=== PATIENT | male | born 1955 | race Caucasian/White ===

== ENCOUNTER 2018-08-15 20:05 | Observation (INO) | payer OTHER ==
[2018-08-15 21:12] LABS: BASO # 0.1 K/uL (0.0-0.2); BASO % 0.7 % (0.0-2.0); EOS # 0.2 K/uL (0.0-0.7); EOS % 1.8 % (0.0-4.0); HEMOGLOBIN 15.6 g/dL (12.0-18.0); LYMPH # 3.4 K/uL (1.0-4.3); LYMPH % 27.7 % (20.0-40.0); MEAN CELL VOLUME 85.2 fL (80.0-94.0); MEAN CORPUSCULAR HEMOGLOBIN 29.8 pg (27.0-31.0); MEAN CORPUSCULAR HGB CONC 34.9 g/dL (33.0-37.0); MEAN PLATELET VOLUME 7.7 fL (7.2-11.7); MONO # 1.1 K/uL (0.0-0.8); MONO % 8.6 % (0.0-10.0); NEUT # 7.6 K/uL (1.8-7.0); NEUT % 61.2 % (50.0-75.0); NRBC % 0.1 % (0.0-2.0); RBC 5.25 Mil/uL (4.40-5.90); RED CELL DISTRIBUTION WIDTH 13.8 % (11.5-14.5); WHITE BLOOD COUNT 12.4 K/uL (4.8-10.8)
[2018-08-15 21:19] LABS: INR 1.1; PARTIAL THROMBOPLASTIN TIME 31.3 SECONDS (21-34); PROTHROMBIN TIME 11.5 SECONDS (9.7-12.2)
[2018-08-15 21:24] LABS: ALB/GLOB RATIO 1.3 (1.0-2.1); ALBUMIN 4.1 g/dL (3.5-5.0); ALT/SGPT 26 U/L (21-72); AST/SGOT 25 U/L (17-59); BLOOD UREA NITROGEN 13 mg/dL (9-20); CALCIUM 9.3 mg/dl (8.6-10.4); GFR NON-AFRICAN AMERICAN > 60
[2018-08-15 21:35] LABS: B-TYPE NATRIURETIC PEPTIDE 87.3 pg/mL (0-900)
--- NOTE | 2018-08-15 22:00 | C.PDOC ---
History Of Present Illness 63 year old male with PMHx of HTN presents to the ED c/o intermittent mid sternal chest pain and non radiating epigastric abdominal pain for the past few days. Patient reports he is complaint with his HTN medication, took it today. P atient denies sob, cough, fever, chills, nausea, vomit, diarrhea, headache, dizziness, rash, weakness, numbness, recent travel, change in bowel movements, back pain, syncope, previous episodes. Time Seen by Provider: 08/15/18 20:25 Chief Complaint (Nursing): Chest Pain History Per: Patient History/Exam Limitations: no limitations Onset/Duration Of Symptoms: Days Current Symptoms Are (Timing): Still Present Quality: "Pain" Recent travel outside of the [place]: No Additional History Per: Patient Past Medical History Reviewed: Historical Data, Nursing Documentation, Vital Signs Vital Signs: Last Vital Signs Temp 98.1 F 08/15/18 20:10 Pulse 81 08/15/18 20:10 Resp 18 08/15/18 20:10 BP 207/111 H 08/15/18 20:10 Pulse Ox 98 08/15/18 20:10 Primary Care Provider: Shiraz Mendez - Medical History PMH: HTN Denies: Chronic Kidney Disease Surgical History: No Surg Hx Family History: States: Unknown Family Hx - Social History Hx Alcohol Use: No Hx Substance Use: No - Immunization History Hx Influenza Vaccination: No Hx Pneumococcal Vaccination: No Review Of Systems Constitutional: Negative for: Fever, Chills Cardiovascular: Negative for: Chest Pain, Palpitations Respiratory: Negative for: Shortness of Breath Gastrointestinal: Positive for: Abdominal Pain. Negative for: Nausea, Vomiting, Diarrhea Musculoskeletal: Negative for: Back Pain Skin: Negative for: Rash Neurological: Negative for: Weakness, Numbness, Headache, Dizziness Physical Exam - Physical Exam Appears: Non-toxic, No Acute Distress Skin: Normal Color, Warm, Dry, No Rash Head: Atraumatic, Normacephalic Eye(s): bilateral: Normal Inspection Oral Mucosa: Moist Neck: Normal ROM, Supple Chest: Symmetrical Cardiovascular: Rhythm Regular Respiratory: Normal Breath Sounds, No Rales, No Rhonchi, No Wheezing Gastrointestinal/Abdominal: Soft, No Tenderness, No Guarding, No Rebound Back: No CVA Tenderness Extremity: Normal ROM, No Tenderness, No Swelling Neurological/Psych: Oriented x3, Normal Speech, Normal Cognition Gait: Steady ED Course And Treatment - Laboratory Results Result Diagrams: 08/16/18 03:47 08/16/18 03:47 Lab Results: PT 11.5 SECONDS (9.7-12.2) 08/15/18 21:07 INR 1.1 08/15/18 21:07 APTT 31.3 SECONDS (21-34) 08/15/18 21:07 Troponin I < 0.0120 ng/mL (0.00-0.120) 08/15/18 21:07 NT-Pro-B Natriuret Pep 87.3 pg/mL (0-900) 08/15/18 21:07 Total Bilirubin 0.4 mg/dL (0.2-1.3) 08/15/18 21:07 AST 25 U/L (17-59) 08/15/18 21:07 ALT 26 U/L (21-72) 08/15/18 21:07 Alkaline Phosphatase 89 U/L (38-126) 08/15/18 21:07 Total Protein 7.3 g/dL (6.3-8.3) 08/15/18 21:07 Albumin 4.1 g/dL (3.5-5.0) 08/15/18 21:07 Globulin 3.2 gm/dL (2.2-3.9) 08/15/18 21:07 Albumin/Globulin Ratio 1.3 (1.0-2.1) 08/15/18 21:07 ECG: Interpreted By Me, Viewed By Me ECG Rhythm: Sinus Rhythm ECG Interpretation: No Acute Changes Interpretation Of ECG: Normal axis, normal intervals, no ST elevations Rate From EC (ON RA) O2 Sat by Pulse Oximetry: 98 (On RA) Pulse Ox Interpretation: Normal - Radiology CXR: Interpreted by Me, Viewed By Me CXR Interpretation: Yes: No Acute Disease. No: Infiltrates, Fracture Medical Decision Making Medical Decision Making: Plan: * EKG * CXR * Labs * Aspirin 352 mg PO * Nitro 0.4 mg SL Results of w/u d/w patient. Patient's bp improved to 154/86. Patient states pain has moved into upper abdomen. Given patient's presenting symptoms and cardiac risk factors, plan is to admit for further evaluation and management. 23:05 - Dr. Palomino Hospitalist transitions rn care coordinator accepted the patient for admission to his service, patient agrees with plan. Disposition Counseled Patient/Family Regarding: Studies Performed, Diagnosis - Disposition Disposition: HOSPITALIZED Disposition Time: 23:09 Condition: IMPROVED - Clinical Impression Clinical Impression: Chest pain - Scribe Statement The provider has reviewed the documentation as recorded by the Scribe Nba Elliott All medical record entries made by the Susieibe were at my direction and personally dictated by me. I have reviewed the chart and agree that the record accurately reflects my personal performance of the history, physical exam, medical decision making, and the department course for this patient. I have also personally directed, reviewed, and agree with the discharge instructions and disposition.
--- NOTE | 2018-08-15 23:20 | CP.PCM.HP ---
<Patricia Abdul - Last Filed: 08/16/18 03:10> History of Present Illness - History of Present Illness History of Present Illness: PGY-1 Patricia Abdul D.O. H&P for Dr. Sarabjit Palomino's service: Patient is a 63 yo male with HTN and GERD who presents with abdominal pain. Patient states that the pain began 2-4 days ago. It is located in the epigastric region and below his ribs on the left side. Patient says the pain is intermittent. It worsens with PO intake. He also endorses decreased appetite and early satiety. He states he had an unintentional 15 lb weight loss over 1 month. He has never had an EGD or CSPY. He has taken Mylanta which relieves symptoms temporarily but gives him diarrhea. He has also taken Tylenol without relief. He denies taking NSAIDs, including ASA, Motrin, Aleve. Denies nausea and vomiting. He complains of acid reflux. PMH: HTN, GERD PSH: denies Meds: unknown antihypertensive All: NKA FH: denies SH: smokes 1ppd for many years, denies alcohol and illicit durg use PMD: Mendez Present on Admission - Present on Admission Any Indicators Present on Admission: No History of DVT/PE: No History of Uncontrolled Diabetes: No Urinary Catheter: No Decubitus Ulcer Present: No History Surgical Site Infection Following: None Review of Systems - Constitutional Constitutional: Anorexia, Chills, Fever, Weight Loss. absent: Headache - EENT Eyes: absent: Change in Vision Ears: absent: Decreased Hearing Nose/Mouth/Throat: absent: Nasal Congestion, Sore Throat - Cardiovascular Cardiovascular: Chest Pain. absent: Diaphoresis, Palpitations - Respiratory Respiratory: absent: Cough, Dyspnea - Gastrointestinal Gastrointestinal: Abdominal Pain, Diarrhea, Dyspepsia, Heartburn. absent: Change in Stool Character, Constipation, Nausea, Vomiting - Genitourinary Genitourinary: absent: Dysuria, Hematuria - Musculoskeletal Musculoskeletal: absent: Arthralgias, Myalgias, Numbness, Tingling - Integumentary Integumentary: absent: New Lesions, Pruritus - Neurological Neurological: absent: Dizziness, Focal Weakness - Endocrine Endocrine: absent: Fatigue, Palpitations - Hematologic/Lymphatic Hematologic: absent: Easy Bleeding, Easy Bruising, Lymphadenopathy Past Patient History - Infectious Disease Hx of Infectious Diseases: None - Tetanus Immunizations Tetanus Immunization: Unknown - Past Medical History & Family History Past Medical History?: Yes Past Family History: Reviewed and not pertinent - Past Social History Smoking Status: Heavy Smoker > 10 Cigarettes Daily Chewing Tobacco Use: No Cigar Use: No Alcohol: None Drugs: Denies - CARDIAC Hx Hypertension: Yes - PULMONARY Hx Respiratory Disorders: No - NEUROLOGICAL Hx Neurological Disorder: No - HEENT Hx HEENT Problems: No - RENAL Hx Chronic Kidney Disease: No - ENDOCRINE/METABOLIC Hx Endocrine Disorders: No - HEMATOLOGICAL/ONCOLOGICAL Hx Blood Disorders: No - INTEGUMENTARY Hx Dermatological Problems: No - MUSCULOSKELETAL/RHEUMATOLOGICAL Hx Musculoskeletal Disorders: No - GASTROINTESTINAL Hx Gastrointestinal Disorders: No - GENITOURINARY/GYNECOLOGICAL Hx Genitourinary Disorders: No - PSYCHIATRIC Hx Substance Use: No - SURGICAL HISTORY Hx Surgeries: No - ANESTHESIA Hx Anesthesia: No Meds Allergies/Adverse Reactions: Allergies Allergy/AdvReac Type Severity Reaction Status Date / Time No Known Allergies Allergy Verified 08/15/18 20:12 Physical Exam - Head Exam Head Exam: ATRAUMATIC, NORMAL INSPECTION - Eye Exam Eye Exam: EOMI, Normal appearance, PERRL - ENT Exam ENT Exam: Mucous Membranes Moist - Respiratory Exam Respiratory Exam: Clear to Auscultation Bilateral, NORMAL BREATHING PATTERN - Cardiovascular Exam Cardiovascular Exam: RRR, +S1, +S2 - GI/Abdominal Exam GI & Abdominal Exam: Normal Bowel Sounds, Tenderness (epigastric, LUQ). absent: Distended, Rebound - Extremities Exam Extremities exam: Positive for: normal inspection - Back Exam Back exam: NORMAL INSPECTION - Neurological Exam Neurological exam: Alert, CN II-XII Intact, Oriented x3 - Psychiatric Exam Psychiatric exam: Normal Affect, Normal Mood - Skin Skin Exam: Dry, Normal Color, Warm Results - Vital Signs Recent Vital Signs: Last Vital Signs Temp 98.1 F 08/15/18 20:10 Pulse 80 08/15/18 22:33 Resp 16 08/15/18 22:33 BP 164/86 H 08/15/18 22:33 Pulse Ox 98 08/15/18 23:09 - Labs Result Diagrams: 08/15/18 21:07 08/15/18 21:07 Labs: Laboratory Results - last 24 hr 08/15/18 08/15/18 08/15/18 21:07 21:07 21:07 WBC 12.4 H RBC 5.25 Hgb 15.6 Hct 44.8 MCV 85.2 MCH 29.8 MCHC 34.9 RDW 13.8 Plt Count 238 MPV 7.7 Neut % (Auto) 61.2 Lymph % (Auto) 27.7 [place] % (Auto) 8.6 Eos % (Auto) 1.8 Baso % (Auto) 0.7 Neut # (Auto) 7.6 H Lymph # (Auto) 3.4 [place] # (Auto) 1.1 H Eos # (Auto) 0.2 Baso # (Auto) 0.1 PT 11.5 INR 1.1 APTT 31.3 Sodium 137 Potassium 4.0 Chloride 100 Carbon Dioxide 30 Anion Gap 12 BUN 13 Creatinine 0.9 Est GFR ( Amer) > 60 Est GFR (Non-Af Amer) > 60 Random Glucose 124 H Calcium 9.3 Magnesium 2.0 Total Bilirubin 0.4 AST 25 ALT 26 Alkaline Phosphatase 89 Troponin I < 0.0120 NT-Pro-B Natriuret Pep 87.3 Total Protein 7.3 Albumin 4.1 Globulin 3.2 Albumin/Globulin Ratio 1.3 Lipase 08/15/18 22:19 WBC RBC Hgb Hct MCV MCH MCHC RDW Plt Count MPV Neut % (Auto) Lymph % (Auto) [place] % (Auto) Eos % (Auto) Baso % (Auto) Neut # (Auto) Lymph # (Auto) [place] # (Auto) Eos # (Auto) Baso # (Auto) PT INR APTT Sodium Potassium Chloride Carbon Dioxide Anion Gap BUN Creatinine Est GFR ( Amer) Est GFR (Non-Af Amer) Random Glucose Calcium Magnesium Total Bilirubin AST ALT Alkaline Phosphatase Troponin I NT-Pro-B Natriuret Pep Total Protein Albumin Globulin Albumin/Globulin Ratio Lipase 98 Assessment & Plan - Assessment and Plan (Free Text) Assessment: Patient is a 63 yo male with HTN and GERD who presents with abdominal pain. Also found to have HTN urgency. Plan: Abdominal pain, acute - CT A/P pending - Lipase wnl - WBC 12.4, no left shift - ESR pending - UA pending - Blood, urine Cx pending - Protonix 40 mg PO daily - Tylenol 650 mg PO Q6H PRN - Morphine 4 mg IVP Q4H PRN - GI consulted (Juana) Hypertensive urgency, acute, improving - 201/111 on admission - Vitals Q4H - Metoprolol 25 mg PO daily - Hydralazine 25 mg PO Q8H PRN Chest pain, acute- suspect related to above assessments - EKG: NSR - [place] negative- trend - BNP wnl - Echo pending - Cardiology consulted (Cleve) Tobacco use disorder, chronic - Cessation counseling - Nicoderm daily Ppx: VTE: SCDs GI: Protonix 40 mg PO daily Diet: NPO except meds Code status: full code Dispo: f/u GI recs, monitor BP Case discussed with attending, Dr. Palomino. <Sarabjit Palomino - Last Filed: 08/16/18 06:51> Results - Vital Signs Recent Vital Signs: Last Vital Signs Temp 98.0 F 08/16/18 00:30 Pulse 78 08/16/18 03:44 Resp 20 08/16/18 03:44 BP 152/91 H 08/16/18 03:44 Pulse Ox 97 08/16/18 03:44 - Labs Result Diagrams: 08/16/18 03:47 08/16/18 03:47 Labs: Laboratory Results - last 24 hr 08/15/18 08/15/18 08/15/18 21:07 21:07 21:07 WBC 12.4 H RBC 5.25 Hgb 15.6 Hct 44.8 MCV 85.2 MCH 29.8 MCHC 34.9 RDW 13.8 Plt Count 238 MPV 7.7 Neut % (Auto) 61.2 Lymph % (Auto) 27.7 [place] % (Auto) 8.6 Eos % (Auto) 1.8 Baso % (Auto) 0.7 Neut # (Auto) 7.6 H Lymph # (Auto) 3.4 [place] # (Auto) 1.1 H Eos # (Auto) 0.2 Baso # (Auto) 0.1 ESR PT 11.5 INR 1.1 APTT 31.3 Sodium 137 Potassium 4.0 Chloride 100 Carbon Dioxide 30 Anion Gap 12 BUN 13 Creatinine 0.9 Est GFR ( Amer) > 60 Est GFR (Non-Af Amer) > 60 Random Glucose 124 H Calcium 9.3 Phosphorus Magnesium 2.0 Total Bilirubin 0.4 AST 25 ALT 26 Alkaline Phosphatase 89 Total Creatine Kinase CK-MB (Mass) Troponin I < 0.0120 NT-Pro-B Natriuret Pep 87.3 Total Protein 7.3 Albumin 4.1 Globulin 3.2 Albumin/Globulin Ratio 1.3 Lipase Urine Color Urine Clarity Urine pH Ur Specific [place] Urine Protein Urine Glucose (UA) Urine Ketones Urine Blood Urine Nitrate Urine Bilirubin Urine Urobilinogen Ur Leukocyte Esterase Urine RBC (Auto) 08/15/18 08/16/18 08/16/18 22:19 03:47 03:47 WBC 9.9 RBC 5.08 Hgb 15.4 Hct 44.0 MCV 86.7 MCH 30.3 MCHC 34.9 RDW 13.7 Plt Count 220 MPV 7.6 Neut % (Auto) 61.0 Lymph % (Auto) 28.3 [place] % (Auto) 7.8 Eos % (Auto) 2.0 Baso % (Auto) 0.9 Neut # (Auto) 6.1 Lymph # (Auto) 2.8 [place] # (Auto) 0.8 Eos # (Auto) 0.2 Baso # (Auto) 0.1 ESR PT INR APTT Sodium 135 Potassium 4.1 Chloride 102 Carbon Dioxide 24 Anion Gap 13 BUN 11 Creatinine 0.8 Est GFR ( Amer) > 60 Est GFR (Non-Af Amer) > 60 Random Glucose 105 Calcium 9.1 Phosphorus 3.6 Magnesium 1.9 Total Bilirubin 0.6 AST 20 ALT 21 Alkaline Phosphatase 75 Total Creatine Kinase CK-MB (Mass) Troponin I NT-Pro-B Natriuret Pep Total Protein 6.7 Albumin 3.7 Globulin 2.9 Albumin/Globulin Ratio 1.3 Lipase 98 Urine Color Urine Clarity Urine pH Ur Specific [place] Urine Protein Urine Glucose (UA) Urine Ketones Urine Blood Urine Nitrate Urine Bilirubin Urine Urobilinogen Ur Leukocyte Esterase Urine RBC (Auto) 08/16/18 08/16/18 08/16/18 03:47 03:47 06:16 WBC RBC Hgb Hct MCV MCH MCHC RDW Plt Count MPV Neut % (Auto) Lymph % (Auto) [place] % (Auto) Eos % (Auto) Baso % (Auto) Neut # (Auto) Lymph # (Auto) [place] # (Auto) Eos # (Auto) Baso # (Auto) ESR 12 PT INR APTT Sodium Potassium Chloride Carbon Dioxide Anion Gap BUN Creatinine Est GFR ( Amer) Est GFR (Non-Af Amer) Random Glucose Calcium Phosphorus Magnesium Total Bilirubin AST ALT Alkaline Phosphatase Total Creatine Kinase 45 L CK-MB (Mass) 0.36 Troponin I < 0.0120 NT-Pro-B Natriuret Pep Total Protein Albumin Globulin Albumin/Globulin Ratio Lipase Urine Color Straw Urine Clarity Clear Urine pH 8.0 Ur Specific [place] 1.043 H Urine Protein Negative Urine Glucose (UA) Normal Urine Ketones Negative Urine Blood 1+ H Urine Nitrate Negative Urine Bilirubin Negative Urine Urobilinogen Normal Ur Leukocyte Esterase Neg Urine RBC (Auto) 2 Attending/Attestation - Attestation I have fully participated in the care of the patient.: Yes I have reviewed all pertinent clinical information: Yes Notes (Text): 08/16/18 06:51 i have personally seen and examined this pt with resident.
[2018-08-16] MEDS ORDERED: Iohexol 240 (50 ml) PO ONE (00:55)
[2018-08-16] MEDS ORDERED: Iohexol 240 (50 ml) ONE (01:15)
[2018-08-16 03:50] LABS: BASO # 0.1 K/uL (0.0-0.2); BASO % 0.9 % (0.0-2.0); EOS # 0.2 K/uL (0.0-0.7); HEMOGLOBIN 15.4 g/dL (12.0-18.0); LYMPH # 2.8 K/uL (1.0-4.3); LYMPH % 28.3 % (20.0-40.0); MEAN CELL VOLUME 86.7 fL (80.0-94.0); MEAN CORPUSCULAR HEMOGLOBIN 30.3 pg (27.0-31.0); MEAN CORPUSCULAR HGB CONC 34.9 g/dL (33.0-37.0); MEAN PLATELET VOLUME 7.6 fL (7.2-11.7); MONO # 0.8 K/uL (0.0-0.8); MONO % 7.8 % (0.0-10.0); NEUT # 6.1 K/uL (1.8-7.0); RBC 5.08 Mil/uL (4.40-5.90); RED CELL DISTRIBUTION WIDTH 13.7 % (11.5-14.5); WHITE BLOOD COUNT 9.9 K/uL (4.8-10.8)
[2018-08-16 04:02] LABS: ALB/GLOB RATIO 1.3 (1.0-2.1); ALBUMIN 3.7 g/dL (3.5-5.0); ALT/SGPT 21 U/L (21-72); AST/SGOT 20 U/L (17-59); BLOOD UREA NITROGEN 11 mg/dL (9-20); CALCIUM 9.1 mg/dl (8.6-10.4); GFR NON-AFRICAN AMERICAN > 60
[2018-08-16 04:13] LABS: CK-MB 0.36 ng/mL (0.0-3.38)
[2018-08-16 06:21] LABS: URINE BILIRUBIN NEGATIVE (NEGATIVE); URINE BLOOD 1+ (NEGATIVE); URINE CLARITY Clear (Clear); URINE COLOR Straw (YELLOW); URINE GLUCOSE (UA) NORMAL (Normal); URINE LEUKOCYTE ESTERASE NEG Leu/uL (Negative); URINE PROTEIN NEGATIVE (NEGATIVE); URINE UROBILINOGEN NORMAL mg/dL (0.2-1.0)
--- NOTE | 2018-08-16 08:11 | CP.PCM.PN ---
<Hemant Lindsey - Last Filed: 08/16/18 14:28> Subjective - Date & Time of Evaluation Date of Evaluation: 08/16/18 Time of Evaluation: 07:45 - Subjective Subjective: Medicine Progress Note for Dr. Hargrove, Hospitalist Service Pt seen and examined at bedside this am. States he was unable to sleep all night due to the abdominal pain, reports no improvement in symptoms since presentation on admission. However states this am that he wants to eat. Denies nausea or vomiting. Denies fever, chills, chest pain, sob, urinary complaints, or other symptoms. States he also get heartburn and reflux-like symptoms but that they only are present after he eats. Objective - Vital Signs/Intake and Output Vital Signs (last 24 hours): Temp Pulse Resp BP Pulse Ox 98.0 F 72 16 156/80 H 98 08/16/18 00:30 08/16/18 07:16 08/16/18 07:16 08/16/18 07:16 08/16/18 07:16 - Medications Medications: Current Medications Acetaminophen (Tylenol 325mg Tab) 650 mg PO Q6 PRN PRN Reason: Pain, Mild (1-3) Last Admin: 08/16/18 03:56 Dose: 650 mg Hydralazine HCl (Apresoline) 25 mg PO Q8H PRN PRN Reason: Systolic Blood Pressure >160 Metoprolol Succinate (Toprol Xl) 25 mg PO DAILY [facility] Morphine Sulfate (Morphine) 1 mg IVP Q4 PRN PRN Reason: Pain, severe (8-10) Nicotine (Nicoderm Cq) 1 patch TD DAILY [facility] Nitroglycerin (Nitrostat Sl Tab) 0.4 mg SL Q5M PRN PRN Reason: Other Last Admin: 08/15/18 22:15 Dose: 0.4 mg Pantoprazole Sodium (Protonix Ec Tab) 40 mg PO DAILY [facility] - Labs Labs: 08/16/18 03:47 08/16/18 03:47 PT 11.5 SECONDS (9.7-12.2) 08/15/18 21:07 INR 1.1 08/15/18 21:07 APTT 31.3 SECONDS (21-34) 08/15/18 21:07 - Constitutional Appears: Non-toxic, No Acute Distress - Head Exam Head Exam: ATRAUMATIC, NORMOCEPHALIC - Eye Exam Eye Exam: EOMI, Normal appearance, PERRL - ENT Exam ENT Exam: Mucous Membranes Moist - Respiratory Exam Respiratory Exam: Clear to Ausculation Bilateral, NORMAL BREATHING PATTERN. absent: Rales, Rhonchi, Wheezes - Cardiovascular Exam Cardiovascular Exam: REGULAR RHYTHM, +S1, +S2. absent: Gallop, Rubs, Murmur - GI/Abdominal Exam GI & Abdominal Exam: Distended, Soft, Tenderness (Tenderness to palpation in epigastric region), Normal Bowel Sounds. absent: Organomegaly - Extremities Exam Extremities Exam: Full ROM, Normal Capillary Refill, Normal Inspection. absent: Pedal Edema - Back Exam Back Exam: Full ROM, NORMAL INSPECTION. absent: paraspinal tenderness - Neurological Exam Neurological Exam: Alert, Awake, CN II-XII Intact, Normal Gait, Oriented x3 - Skin Skin Exam: Dry, Intact, Normal Color, Warm Assessment and Plan - Assessment and Plan (Free Text) Assessment: 63 y o male with PMhx HTN and GERD who presents with abdominal pain. Also found to have HTN urgency. Plan: Abdominal pain, acute - CT A/P: no significant/acute findings - Upper GI series done today, f/u results - Lipase, LFTs wnl - Leukocytosis resolved this am - ESR wnl - UA demonstrates elevated specific gravity, 1+ blood, 2 RBC, pt not c/o blood in stool or hematuria at this time - Blood, urine Cx pending - Protonix 40 mg PO daily - Tylenol 650 mg PO Q6H PRN - Morphine 4 mg IVP Q4H PRN - GI consulted (Dr. Arias), recommended upper GI series and possible endoscopy Hypertensive urgency, acute, improving - 201/111 on admission, BP improving today 156/80 - Vitals Q4H - Metoprolol 25 mg PO daily - Hydralazine 25 mg PO Q8H PRN Chest pain, acute- suspect related to above assessments - EKG: NSR - [place] neg x3 - BNP wnl - Echo done, f/u results - Cardiology consulted (Dr. Poon), recs appreciated Hx Tobacco Abuse -Pt reports he quit smoking cigarettes 5 y ago, reports smoking for period of 20 y -Nicotine patch daily PPX: VTE: SCDs GI: Protonix 40 mg PO daily Diet: HHD, soft Pt seen, examined with, and plan discussed with Dr. Hargrove, attending physician. Hemant Lindsey DO PGY-1, [employer] Counsel[employer] Pager #[phone] <Jasmin Hargrove V - Last Filed: 08/17/18 00:11> Objective - Vital Signs/Intake and Output Vital Signs (last 24 hours): Temp Pulse Resp BP Pulse Ox 98.2 F 74 20 163/77 H 98 08/16/18 15:39 08/16/18 15:39 08/16/18 15:39 08/16/18 15:39 08/16/18 20:37 - Medications Medications: Current Medications Acetaminophen (Tylenol 325mg Tab) 650 mg PO Q6 PRN PRN Reason: Pain, Mild (1-3) Last Admin: 08/16/18 03:56 Dose: 650 mg Amlodipine Besylate (Norvasc) 10 mg PO DAILY [facility] Losartan Potassium (Cozaar) 100 mg PO DAILY [facility] Morphine Sulfate (Morphine) 1 mg IVP Q4 PRN PRN Reason: Pain, severe (8-10) Nicotine (Nicoderm Cq) 1 patch TD DAILY [facility] Last Admin: 08/16/18 11:01 Dose: 1 patch Nitroglycerin (Nitrostat Sl Tab) 0.4 mg SL Q5M PRN PRN Reason: Other Last Admin: 08/15/18 22:15 Dose: 0.4 mg Pantoprazole Sodium (Protonix Ec Tab) 40 mg PO DAILY [facility] Last Admin: 08/16/18 11:00 Dose: 40 mg Pneumococcal Polyvalent Vaccine (Pneumovax 23 Vaccine) 0.5 ml IM .ONCE ONE Stop: 08/17/18 10:01 - Labs Labs: 08/16/18 03:47 08/16/18 03:47 PT 11.5 SECONDS (9.7-12.2) 08/15/18 21:07 INR 1.1 08/15/18 21:07 APTT 31.3 SECONDS (21-34) 08/15/18 21:07 Attending/Attestation - Attestation I have personally seen and examined this patient.: Yes I have fully participated in the care of the patient.: Yes I have reviewed all pertinent clinical information, including history, physical exam and plan: Yes Notes (Text): Patient seen, examined case discussed with certified medical aide. Patient noted intermittent lower abdominal pain with associated early satiety and reflux type symptoms. Patient has not had a prior GI work-up before. Patient is a former smoker. Patient has completed CAT scan reviewed CAT scan. GI has came and evaluated the patient recommended for upper GI series and will consider possible endoscopy pending the results of the GI series. Patient blood pressure is relatively better controlled compared to earlier today cardiology has also evaluated patient is afternoon recommended from our calcium channel david combination. We will continue to monitor blood pressure and follow-up with GI in regards to endoscopy.
--- NOTE | 2018-08-16 08:49 | RAD ---
Date of service: 08/15/2018 HISTORY: chest pain COMPARISON: 04/28/2017 TECHNIQUE: 1 view obtained. FINDINGS: LUNGS: Hyperinflation of the lung elizabeth suggestive for COPD and or emphysematous changes. Upper lobe granulomatous changes. No gross focal infiltrate or effusion. PLEURA: No significant pleural effusion identified, no pneumothorax apparent. CARDIOVASCULAR: No aortic atherosclerotic calcification present. Normal cardiac size. No pulmonary vascular congestion. OSSEOUS STRUCTURES: No significant abnormalities. VISUALIZED UPPER ABDOMEN: Normal. OTHER FINDINGS: None. IMPRESSION: No active disease.
--- NOTE | 2018-08-16 09:07 | CT ---
Date of service: 08/16/2018 PROCEDURE: CT Abdomen and Pelvis with contrast HISTORY: abd pain, weight loss COMPARISON: None. TECHNIQUE: Intravenous contrast dose: 100 cc Visipaque 320 Radiation dose: Total exam DLP = 338.66 mGy-cm. This CT exam was performed using one or more of the following dose reduction techniques: Automated exposure control, adjustment of the mA and/or kV according to patient size, and/or use of iterative reconstruction technique. FINDINGS: LOWER THORAX: Unremarkable. LIVER: Unremarkable. No gross lesion or ductal dilatation. GALLBLADDER AND BILE DUCTS: Unremarkable. PANCREAS: Unremarkable. No gross lesion or ductal dilatation. SPLEEN: Unremarkable. ADRENALS: Unremarkable. No mass. KIDNEYS AND URETERS: Unremarkable. No hydronephrosis. No solid mass. Incidental finding(s): Simple cyst upper pole left kidney 1.6 cm. VASCULATURE: Atherosclerotic calcification and mural plaque present. Findings are seen throughout the aorta BOWEL: Unremarkable. No obstruction. No gross mural thickening. APPENDIX: A normal appendix is visualized in it's entirety. PERITONEUM: Unremarkable. No free fluid. No free air. LYMPH NODES: Unremarkable. No enlarged lymph nodes. BLADDER: Unremarkable. REPRODUCTIVE: Mildly enlarged prostate. Unilateral, left hydrocele. BONES: No acute fracture. OTHER FINDINGS: None. IMPRESSION: No significant or acute findings to account for/ related to the clinical presentation. Additional benign and/or incidental findings described above. Concordant results (preliminary interpretation) provided by [employer]. Procedure Completed: 03:01 Preliminary Report: Interpreted and electronically signed: 04:39 Final Interpretation: 09:03
[2018-08-16] MEDS ORDERED: Metoprolol Succinate 25 mg XL Tab PO SCH (10:00)
--- NOTE | 2018-08-16 10:24 | CP.PCM.CON ---
History of Present Illness - History of Present Illness History of Present Illness: This is a 63 year old man with abdominal pain. Patient states that he noted onset of LUQ pain five days ago. The pain occurred daily, intermittently, lasting ten minutes at a time, described as severe and cramping, and seems worse after eating. He has also noted that he feels full after eating small amounts of food, and he has lost ten pounds in the past week. Antacids gave him diarrhea but did not relieve the pain. He denies having nausea, vomiting, heartburn, difficulty swallowing, diarrhea, constipation and rectal bleeding. CT scan in the ER showed no acute findings. Review of Systems - Review of Systems All systems: reviewed and no additional remarkable complaints except - Constitutional Constitutional: absent: Chills, Fever - Cardiovascular Cardiovascular: absent: Chest Pain, Palpitations - Respiratory Respiratory: absent: Cough, Dyspnea - Gastrointestinal Gastrointestinal: Abdominal Pain, Diarrhea. absent: Constipation, Dysphagia, Heartburn, Hematochezia, Nausea, Vomiting - Genitourinary Genitourinary: absent: Dysuria, Hematuria - Musculoskeletal Musculoskeletal: absent: Arthralgias, Myalgias Past Patient History - Infectious Disease Hx of Infectious Diseases: None - Tetanus Immunizations Tetanus Immunization: Unknown - Past Medical History & Family History Past Medical History?: Yes Past Family History: Reviewed and not pertinent - Past Social History Smoking Status: Heavy Smoker > 10 Cigarettes Daily Chewing Tobacco Use: No Cigar Use: No Alcohol: None Drugs: Denies - CARDIAC Hx Hypertension: Yes - PULMONARY Hx Respiratory Disorders: No - NEUROLOGICAL Hx Neurological Disorder: No - HEENT Hx HEENT Problems: No - RENAL Hx Chronic Kidney Disease: No - ENDOCRINE/METABOLIC Hx Endocrine Disorders: No - HEMATOLOGICAL/ONCOLOGICAL Hx Blood Disorders: No - INTEGUMENTARY Hx Dermatological Problems: No - MUSCULOSKELETAL/RHEUMATOLOGICAL Hx Musculoskeletal Disorders: No - GASTROINTESTINAL Hx Gastrointestinal Disorders: No - GENITOURINARY/GYNECOLOGICAL Hx Genitourinary Disorders: No - PSYCHIATRIC Hx Substance Use: No - SURGICAL HISTORY Hx Surgeries: No - ANESTHESIA Hx Anesthesia: No Meds Allergies/Adverse Reactions: Allergies Allergy/AdvReac Type Severity Reaction Status Date / Time No Known Allergies Allergy Verified 08/15/18 20:12 - Medications Medications: Current Medications Acetaminophen (Tylenol 325mg Tab) 650 mg PO Q6 PRN PRN Reason: Pain, Mild (1-3) Last Admin: 08/16/18 03:56 Dose: 650 mg Hydralazine HCl (Apresoline) 25 mg PO Q8H PRN PRN Reason: Systolic Blood Pressure >160 Metoprolol Succinate (Toprol Xl) 25 mg PO DAILY [facility] Morphine Sulfate (Morphine) 1 mg IVP Q4 PRN PRN Reason: Pain, severe (8-10) Nicotine (Nicoderm Cq) 1 patch TD DAILY [facility] Nitroglycerin (Nitrostat Sl Tab) 0.4 mg SL Q5M PRN PRN Reason: Other Last Admin: 08/15/18 22:15 Dose: 0.4 mg Pantoprazole Sodium (Protonix Ec Tab) 40 mg PO DAILY [facility] Physical Exam - Constitutional Appears: No Acute Distress - Head Exam Head Exam: ATRAUMATIC, NORMOCEPHALIC - Eye Exam Eye Exam: EOMI, PERRL - Neck Exam Neck exam: Negative for: Lymphadenopathy, Thyromegaly - Respiratory Exam Respiratory Exam: NORMAL BREATHING PATTERN. absent: Rales, Rhonchi, Wheezes - Cardiovascular Exam Cardiovascular Exam: REGULAR RHYTHM, +S1, +S2. absent: Gallop, Rubs, Systolic Murmur - GI/Abdominal Exam GI & Abdominal Exam: Normal Bowel Sounds, Soft. absent: Mass, Organomegaly, Tenderness - Rectal Exam Rectal Exam: Deferred - Extremities Exam Extremities exam: Negative for: calf tenderness, pedal edema Results - Vital Signs Recent Vital Signs: Last Vital Signs Temp 97.9 F 08/16/18 08:25 Pulse 68 08/16/18 08:25 Resp 20 08/16/18 08:25 BP 172/77 H 08/16/18 08:25 Pulse Ox 99 08/16/18 08:25 - Labs Result Diagrams: 08/16/18 03:47 08/16/18 03:47 Labs: Laboratory Results - last 24 hr 08/15/18 08/15/18 08/15/18 21:07 21:07 21:07 WBC 12.4 H RBC 5.25 Hgb 15.6 Hct 44.8 MCV 85.2 MCH 29.8 MCHC 34.9 RDW 13.8 Plt Count 238 MPV 7.7 Neut % (Auto) 61.2 Lymph % (Auto) 27.7 [place] % (Auto) 8.6 Eos % (Auto) 1.8 Baso % (Auto) 0.7 Neut # (Auto) 7.6 H Lymph # (Auto) 3.4 [place] # (Auto) 1.1 H Eos # (Auto) 0.2 Baso # (Auto) 0.1 ESR PT 11.5 INR 1.1 APTT 31.3 Sodium 137 Potassium 4.0 Chloride 100 Carbon Dioxide 30 Anion Gap 12 BUN 13 Creatinine 0.9 Est GFR ( Amer) > 60 Est GFR (Non-Af Amer) > 60 Random Glucose 124 H Calcium 9.3 Phosphorus Magnesium 2.0 Total Bilirubin 0.4 AST 25 ALT 26 Alkaline Phosphatase 89 Total Creatine Kinase CK-MB (Mass) Troponin I < 0.0120 NT-Pro-B Natriuret Pep 87.3 Total Protein 7.3 Albumin 4.1 Globulin 3.2 Albumin/Globulin Ratio 1.3 Lipase Urine Color Urine Clarity Urine pH Ur Specific [place] Urine Protein Urine Glucose (UA) Urine Ketones Urine Blood Urine Nitrate Urine Bilirubin Urine Urobilinogen Ur Leukocyte Esterase Urine RBC (Auto) 08/15/18 08/16/18 08/16/18 22:19 03:47 03:47 WBC 9.9 RBC 5.08 Hgb 15.4 Hct 44.0 MCV 86.7 MCH 30.3 MCHC 34.9 RDW 13.7 Plt Count 220 MPV 7.6 Neut % (Auto) 61.0 Lymph % (Auto) 28.3 [place] % (Auto) 7.8 Eos % (Auto) 2.0 Baso % (Auto) 0.9 Neut # (Auto) 6.1 Lymph # (Auto) 2.8 [place] # (Auto) 0.8 Eos # (Auto) 0.2 Baso # (Auto) 0.1 ESR PT INR APTT Sodium 135 Potassium 4.1 Chloride 102 Carbon Dioxide 24 Anion Gap 13 BUN 11 Creatinine 0.8 Est GFR ( Amer) > 60 Est GFR (Non-Af Amer) > 60 Random Glucose 105 Calcium 9.1 Phosphorus 3.6 Magnesium 1.9 Total Bilirubin 0.6 AST 20 ALT 21 Alkaline Phosphatase 75 Total Creatine Kinase CK-MB (Mass) Troponin I NT-Pro-B Natriuret Pep Total Protein 6.7 Albumin 3.7 Globulin 2.9 Albumin/Globulin Ratio 1.3 Lipase 98 Urine Color Urine Clarity Urine pH Ur Specific [place] Urine Protein Urine Glucose (UA) Urine Ketones Urine Blood Urine Nitrate Urine Bilirubin Urine Urobilinogen Ur Leukocyte Esterase Urine RBC (Auto) 08/16/18 08/16/18 08/16/18 03:47 03:47 06:16 WBC RBC Hgb Hct MCV MCH MCHC RDW Plt Count MPV Neut % (Auto) Lymph % (Auto) [place] % (Auto) Eos % (Auto) Baso % (Auto) Neut # (Auto) Lymph # (Auto) [place] # (Auto) Eos # (Auto) Baso # (Auto) ESR 12 PT INR APTT Sodium Potassium Chloride Carbon Dioxide Anion Gap BUN Creatinine Est GFR ( Amer) Est GFR (Non-Af Amer) Random Glucose Calcium Phosphorus Magnesium Total Bilirubin AST ALT Alkaline Phosphatase Total Creatine Kinase 45 L CK-MB (Mass) 0.36 Troponin I < 0.0120 NT-Pro-B Natriuret Pep Total Protein Albumin Globulin Albumin/Globulin Ratio Lipase Urine Color Straw Urine Clarity Clear Urine pH 8.0 Ur Specific [place] 1.043 H Urine Protein Negative Urine Glucose (UA) Normal Urine Ketones Negative Urine Blood 1+ H Urine Nitrate Negative Urine Bilirubin Negative Urine Urobilinogen Normal Ur Leukocyte Esterase Neg Urine RBC (Auto) 2 Assessment & Plan (1) LUQ abdominal pain Assessment and Plan: Patient has a five-day history of LUQ pain, early satiety and weight loss. CT scan showed no acute abnormalities. Will schedule UGI series and possible EGD. Status: Acute
[2018-08-16] MEDS: Pantoprazole 40 mg EC Tab PO SCH (11:00)
[2018-08-16] MEDS ORDERED: Barium Sulfate for Susp 96% w/w 176g Bottle PR ONE (11:39)
[2018-08-16] MEDS ORDERED: Barium Sulfate for Susp 98% w/w 340g Bottle ONE (11:39)
[2018-08-16 13:05] LABS: CK-MB 0.42 ng/mL (0.0-3.38)
--- NOTE | 2018-08-16 13:39 | RAD ---
Date of service: 08/16/2018 PROCEDURE: Upper GI series HISTORY: Abdominal pain. COMPARISON: None available. TECHNIQUE: Fluoroscopic evaluation of the esophagus and stomach was performed following administration of oral contrast. FINDINGS: Esophagus: Unremarkable, without gross mucosal abnormality, mass lesion, stricture or obstruction. Hiatal hernia: None. Reflux: Moderate to the level of the thoracic inlet. Stomach: Thickening and irregularity of the gastric mucosa most prominent at the cardia and fundus which may represent a gastritis. Relative narrowing at the midportion of the stomach. These findings may be better evaluated with upper GI endoscopy if clinically indicated. Additional questionable mild thickening of the mucosa at the level of the distal duodenal bulb. Correlation with upper GI endoscopy may be helpful if clinically indicated. Relative holdup of contrast within the stomach with prominent delay of gastric emptying. This may be better evaluated with nuclear medicine study. IMPRESSION: 1. Moderate gastroesophageal reflux to the level of the thoracic inlet. Clinical correlation. 2. Thickening and irregularity of the gastric mucosa which may represent a gastritis. Clinical correlation. Relative narrowing at the midportion of the stomach. These findings may be better evaluated with upper GI endoscopy if clinically indicated. 3.Relative holdup of contrast within the stomach with prominent delay of gastric emptying. This may represent a gastroparesis. This may be better evaluated with nuclear medicine study. Clinical correlation.
--- NOTE | 2018-08-16 14:24 | CARD ---
APPROVED REPORT Date of service: 08/16/2018 EXAM: Two-dimensional and M-mode echocardiogram with Doppler and color Doppler. Other Information Quality : GoodRhythm : INDICATION Chest Pain RISK FACTORS Hypertension 2D DIMENSIONS IVSd0.8 (0.7-1.1cm)LVDd4.2 (3.9-5.9cm) PWd0.9 (0.7-1.1cm)LA [id number] (18-58mL) LVDs2.2 (2.5-4.0cm)FS (%) 47.4 % LVEF (%)79.2 (>50%)LVEF (Davis's)52.93 % M-Mode DIMENSIONS Left Atrium (MM)3.55 (2.5-4.0cm)IVSd0.77 (0.7-1.1cm) Aortic Root3.48 (2.2-3.7cm)LVDd4.53 (4.0-5.6cm) Aortic Cusp Exc.2.00 (1.5-2.0cm)PWd0.91 (0.7-1.1cm) FS (%) 38 %LVDs2.80 (2.0-3.8cm) LVEF (%)69 (>50%) Mitral Valve MV E Jpvolbxe76.6cm/sMV A Qainrazi37.7cm/sE/A ratio0.8 TDI Lateral E' Peak V10.42cm/sMedial E' Peak V7.90cm/sE/Lateral E'6.4 E/Medial E'8.4 Tricuspid Valve TR Peak [id number]/sTR Peak [id number] LEFT VENTRICLE The left ventricle is normal size. There is normal left ventricular wall thickness. The Ejection Fraction is 60-65%. There is normal LV segmental wall motion. The left ventricular diastolic function is normal. RIGHT VENTRICLE The right ventricle is normal size. The right ventricular systolic function is normal. ATRIA The left atrium size is normal. The right atrium size is normal. The interatrial septum is intact with no evidence for an atrial septal defect. AORTIC VALVE The aortic valve is normal in structure. No aortic regurgitation is present. MITRAL VALVE The mitral valve is normal in structure. There is no mitral valve regurgitation noted. TRICUSPID VALVE The tricuspid valve is normal in structure. There is mild tricuspid regurgitation. Right ventricular systolic pressure is estimated at 29 mmHg. There is no pulmonary hypertension. PULMONIC VALVE The pulmonary valve is normal in structure. There is no pulmonic valvular regurgitation. GREAT VESSELS The aortic root is normal in size. The IVC is normal in size and collapses >50% with inspiration. PERICARDIAL EFFUSION There is no pericardial effusion. <Conclusion> The left ventricle is normal size. The Ejection Fraction is 60-65%. The left ventricular diastolic function is normal. There is mild tricuspid regurgitation. Right ventricular systolic pressure is estimated at 29 mmHg. There is no pulmonary hypertension. The aortic root is normal in size. The IVC is normal in size and collapses >50% with inspiration. There is no pericardial effusion.
--- NOTE | 2018-08-16 19:38 | CP.PCM.CON ---
History of Present Illness - History of Present Illness History of Present Illness: Pt admitted with abdominal diana. As per Dr Arias "Patient states that he noted onset of LUQ pain five days ago. The pain occurred daily, intermittently, lasting ten minutes at a time, described as severe and cramping, and seems worse after eating. He has also noted that he feels full after eating small amounts of food, and he has lost ten pounds in the past week. Antacids gave him diarrhea but did not relieve". Pt had a barium study, feels better today. He denies chest pressure or SALGADO. He is a smoker. No diabetes ECG and CXR are normal. TNI negative Pt takes BP meds, bp was high on admission, and on hydralazine and b david, bp is still high. Review of Systems - Review of Systems All systems: reviewed and no additional remarkable complaints except (as above) Past Patient History - Infectious Disease Hx of Infectious Diseases: None - Tetanus Immunizations Tetanus Immunization: Unknown - Past Medical History & Family History Past Medical History?: Yes Past Family History: Reviewed and not pertinent - Past Social History Smoking Status: Heavy Smoker > 10 Cigarettes Daily Chewing Tobacco Use: No Cigar Use: No Alcohol: None Drugs: Denies - CARDIAC Hx Hypertension: Yes - PULMONARY Hx Respiratory Disorders: No - NEUROLOGICAL Hx Neurological Disorder: No - HEENT Hx HEENT Problems: No - RENAL Hx Chronic Kidney Disease: No - ENDOCRINE/METABOLIC Hx Endocrine Disorders: No - HEMATOLOGICAL/ONCOLOGICAL Hx Blood Disorders: No - INTEGUMENTARY Hx Dermatological Problems: No - MUSCULOSKELETAL/RHEUMATOLOGICAL Hx Musculoskeletal Disorders: No - GASTROINTESTINAL Hx Gastrointestinal Disorders: No - GENITOURINARY/GYNECOLOGICAL Hx Genitourinary Disorders: No - PSYCHIATRIC Hx Substance Use: No - SURGICAL HISTORY Hx Surgeries: No - ANESTHESIA Hx Anesthesia: No Meds Allergies/Adverse Reactions: Allergies Allergy/AdvReac Type Severity Reaction Status Date / Time No Known Allergies Allergy Verified 08/15/18 20:12 - Medications Medications: Current Medications Acetaminophen (Tylenol 325mg Tab) 650 mg PO Q6 PRN PRN Reason: Pain, Mild (1-3) Last Admin: 08/16/18 03:56 Dose: 650 mg Hydralazine HCl (Apresoline) 25 mg PO Q8H PRN PRN Reason: Systolic Blood Pressure >160 Last Admin: 08/16/18 18:01 Dose: 25 mg Metoprolol Succinate (Toprol Xl) 25 mg PO DAILY [facility] Last Admin: 08/16/18 11:01 Dose: 25 mg Morphine Sulfate (Morphine) 1 mg IVP Q4 PRN PRN Reason: Pain, severe (8-10) Nicotine (Nicoderm Cq) 1 patch TD DAILY [facility] Last Admin: 08/16/18 11:01 Dose: 1 patch Nitroglycerin (Nitrostat Sl Tab) 0.4 mg SL Q5M PRN PRN Reason: Other Last Admin: 08/15/18 22:15 Dose: 0.4 mg Pantoprazole Sodium (Protonix Ec Tab) 40 mg PO DAILY [facility] Last Admin: 08/16/18 11:00 Dose: 40 mg Pneumococcal Polyvalent Vaccine (Pneumovax 23 Vaccine) 0.5 ml IM .ONCE ONE Stop: 08/17/18 10:01 Physical Exam - Head Exam Head Exam: ATRAUMATIC - Eye Exam Eye Exam: EOMI Pupil Exam: NORMAL ACCOMODATION - ENT Exam ENT Exam: Mucous Membranes Moist - Respiratory Exam Respiratory Exam: Clear to Auscultation Bilateral - Cardiovascular Exam Cardiovascular Exam: REGULAR RHYTHM - GI/Abdominal Exam GI & Abdominal Exam: Normal Bowel Sounds - Extremities Exam Extremities exam: Positive for: normal inspection - Neurological Exam Neurological exam: Alert, CN II-XII Intact, Oriented x3 - Psychiatric Exam Psychiatric exam: Normal Affect, Normal Mood - Skin Skin Exam: Normal Color Results - Vital Signs Recent Vital Signs: Last Vital Signs Temp 98.2 F 08/16/18 15:39 Pulse 74 08/16/18 15:39 Resp 20 08/16/18 15:39 BP 163/77 H 08/16/18 15:39 Pulse Ox 98 08/16/18 15:39 - Labs Result Diagrams: 08/16/18 03:47 08/16/18 03:47 Labs: Laboratory Results - last 24 hr 08/15/18 08/15/18 08/15/18 21:07 21:07 21:07 WBC 12.4 H RBC 5.25 Hgb 15.6 Hct 44.8 MCV 85.2 MCH 29.8 MCHC 34.9 RDW 13.8 Plt Count 238 MPV 7.7 Neut % (Auto) 61.2 Lymph % (Auto) 27.7 [place] % (Auto) 8.6 Eos % (Auto) 1.8 Baso % (Auto) 0.7 Neut # (Auto) 7.6 H Lymph # (Auto) 3.4 [place] # (Auto) 1.1 H Eos # (Auto) 0.2 Baso # (Auto) 0.1 ESR PT 11.5 INR 1.1 APTT 31.3 Sodium 137 Potassium 4.0 Chloride 100 Carbon Dioxide 30 Anion Gap 12 BUN 13 Creatinine 0.9 Est GFR ( Amer) > 60 Est GFR (Non-Af Amer) > 60 Random Glucose 124 H Calcium 9.3 Phosphorus Magnesium 2.0 Total Bilirubin 0.4 AST 25 ALT 26 Alkaline Phosphatase 89 Total Creatine Kinase CK-MB (Mass) Troponin I < 0.0120 NT-Pro-B Natriuret Pep 87.3 Total Protein 7.3 Albumin 4.1 Globulin 3.2 Albumin/Globulin Ratio 1.3 Lipase Urine Color Urine Clarity Urine pH Ur Specific [place] Urine Protein Urine Glucose (UA) Urine Ketones Urine Blood Urine Nitrate Urine Bilirubin Urine Urobilinogen Ur Leukocyte Esterase Urine RBC (Auto) 08/15/18 08/16/18 08/16/18 22:19 03:47 03:47 WBC 9.9 RBC 5.08 Hgb 15.4 Hct 44.0 MCV 86.7 MCH 30.3 MCHC 34.9 RDW 13.7 Plt Count 220 MPV 7.6 Neut % (Auto) 61.0 Lymph % (Auto) 28.3 [place] % (Auto) 7.8 Eos % (Auto) 2.0 Baso % (Auto) 0.9 Neut # (Auto) 6.1 Lymph # (Auto) 2.8 [place] # (Auto) 0.8 Eos # (Auto) 0.2 Baso # (Auto) 0.1 ESR PT INR APTT Sodium 135 Potassium 4.1 Chloride 102 Carbon Dioxide 24 Anion Gap 13 BUN 11 Creatinine 0.8 Est GFR ( Amer) > 60 Est GFR (Non-Af Amer) > 60 Random Glucose 105 Calcium 9.1 Phosphorus 3.6 Magnesium 1.9 Total Bilirubin 0.6 AST 20 ALT 21 Alkaline Phosphatase 75 Total Creatine Kinase CK-MB (Mass) Troponin I NT-Pro-B Natriuret Pep Total Protein 6.7 Albumin 3.7 Globulin 2.9 Albumin/Globulin Ratio 1.3 Lipase 98 Urine Color Urine Clarity Urine pH Ur Specific [place] Urine Protein Urine Glucose (UA) Urine Ketones Urine Blood Urine Nitrate Urine Bilirubin Urine Urobilinogen Ur Leukocyte Esterase Urine RBC (Auto) 08/16/18 08/16/18 08/16/18 03:47 03:47 06:16 WBC RBC Hgb Hct MCV MCH MCHC RDW Plt Count MPV Neut % (Auto) Lymph % (Auto) [place] % (Auto) Eos % (Auto) Baso % (Auto) Neut # (Auto) Lymph # (Auto) [place] # (Auto) Eos # (Auto) Baso # (Auto) ESR 12 PT INR APTT Sodium Potassium Chloride Carbon Dioxide Anion Gap BUN Creatinine Est GFR ( Amer) Est GFR (Non-Af Amer) Random Glucose Calcium Phosphorus Magnesium Total Bilirubin AST ALT Alkaline Phosphatase Total Creatine Kinase 45 L CK-MB (Mass) 0.36 Troponin I < 0.0120 NT-Pro-B Natriuret Pep Total Protein Albumin Globulin Albumin/Globulin Ratio Lipase Urine Color Straw Urine Clarity Clear Urine pH 8.0 Ur Specific [place] 1.043 H Urine Protein Negative Urine Glucose (UA) Normal Urine Ketones Negative Urine Blood 1+ H Urine Nitrate Negative Urine Bilirubin Negative Urine Urobilinogen Normal Ur Leukocyte Esterase Neg Urine RBC (Auto) 2 08/16/18 12:05 WBC RBC Hgb Hct MCV MCH MCHC RDW Plt Count MPV Neut % (Auto) Lymph % (Auto) [place] % (Auto) Eos % (Auto) Baso % (Auto) Neut # (Auto) Lymph # (Auto) [place] # (Auto) Eos # (Auto) Baso # (Auto) ESR PT INR APTT Sodium Potassium Chloride Carbon Dioxide Anion Gap BUN Creatinine Est GFR ( Amer) Est GFR (Non-Af Amer) Random Glucose Calcium Phosphorus Magnesium Total Bilirubin AST ALT Alkaline Phosphatase Total Creatine Kinase 46 L CK-MB (Mass) 0.42 Troponin I < 0.0120 NT-Pro-B Natriuret Pep Total Protein Albumin Globulin Albumin/Globulin Ratio Lipase Urine Color Urine Clarity Urine pH Ur Specific [place] Urine Protein Urine Glucose (UA) Urine Ketones Urine Blood Urine Nitrate Urine Bilirubin Urine Urobilinogen Ur Leukocyte Esterase Urine RBC (Auto) - EKG Data EKG Interpreted by: Myself EKG shows normal: Sinus rhythm (normal) Assessment & Plan - Assessment and Plan (Free Text) Assessment: 1. No chest pain. 2. CT of the abdomen reports vascualr calcification, but no mention of AAAA. 3. BP is high. Stop toprol, begin ARB, amlodipine combo. Add thiazide. diuretic if bp high on the first two meds. 4. Echo; normal LV F.
[2018-08-17 07:51] LABS: ALB/GLOB RATIO 1.4 (1.0-2.1); ALT/SGPT 21 U/L (21-72); AST/SGOT 28 U/L (17-59); BLOOD UREA NITROGEN 12 mg/dL (9-20); CALCIUM 9.1 mg/dl (8.6-10.4); GFR NON-AFRICAN AMERICAN > 60
[2018-08-17 07:55] LABS: BASO % 0.4 % (0.0-2.0); EOS # 0.2 K/uL (0.0-0.7); EOS % 1.9 % (0.0-4.0); HEMOGLOBIN 15.8 g/dL (12.0-18.0); LYMPH # 2.8 K/uL (1.0-4.3); LYMPH % 28.1 % (20.0-40.0); MEAN CELL VOLUME 87.2 fL (80.0-94.0); MEAN CORPUSCULAR HEMOGLOBIN 30.2 pg (27.0-31.0); MEAN CORPUSCULAR HGB CONC 34.7 g/dL (33.0-37.0); MONO # 0.8 K/uL (0.0-0.8); MONO % 7.7 % (0.0-10.0); NEUT # 6.1 K/uL (1.8-7.0); NEUT % 61.9 % (50.0-75.0); NRBC % 0.1 % (0.0-2.0); RBC 5.21 Mil/uL (4.40-5.90); RED CELL DISTRIBUTION WIDTH 13.7 % (11.5-14.5); WHITE BLOOD COUNT 9.9 K/uL (4.8-10.8)
[2018-08-17 07:59] VITALS: BP 165/83; RESP 20; TEMP 97.8; O2SAT 98
[2018-08-17] MEDS: Pantoprazole 40 mg EC Tab PO SCH (09:45)
[2018-08-17] MEDS ORDERED: Pneumococcal 23-Valent Vaccine IM ONE (10:00)
[2018-08-17 10:58] VITALS: PULSE 85
--- NOTE | 2018-08-17 11:23 | CP.PCM.DIS ---
<Hemant Lindsey - Last Filed: 08/17/18 13:52> Provider - Provider Date of Admission: 08/15/18 23:08 Attending physician: Jasmin Hargrove DO Primary care physician: Dr. Mendez Consults: 08/16/18 00:17 Cardiology Consult Routine Comment: Consulting Provider: Ray Poon Consulting Physician: Ray Poon Reason for Consult: chest pain, HTN 08/16/18 00:18 Gastroenterology Consult Routine Comment: Consulting Provider: Bar Arias Consulting Physician: Bar Arias Reason for Consult: epigastric pain, early satiety, weight loss Time Spent in preparation of Discharge (in minutes): 30 Diagnosis - Discharge Diagnosis (1) Epigastric abdominal pain Status: Resolved (2) Gastroparesis Status: Acute (3) Reflux gastritis Status: Acute (4) Hypertensive urgency Status: Resolved (5) Chest pain Status: Resolved Hospital Course - Lab Results Lab Results: Micro Results 08/16/18 06:16 Urine,Clean Catch Urine Culture - Final No Growth (<1,000 CFU/ML) Most Recent Lab Values WBC 9.9 K/uL (4.8-10.8) 08/17/18 07:28 RBC 5.21 Mil/uL (4.40-5.90) 08/17/18 07:28 Hgb 15.8 g/dL (12.0-18.0) 08/17/18 07:28 Hct 45.4 % (35.0-51.0) 08/17/18 07:28 MCV 87.2 fL (80.0-94.0) 08/17/18 07:28 MCH 30.2 pg (27.0-31.0) 08/17/18 07:28 MCHC 34.7 g/dL (33.0-37.0) 08/17/18 07:28 RDW 13.7 % (11.5-14.5) 08/17/18 07:28 Plt Count 225 K/uL (130-400) 08/17/18 07:28 MPV 8.0 fL (7.2-11.7) 08/17/18 07:28 Neut % (Auto) 61.9 % (50.0-75.0) 08/17/18 07:28 Lymph % (Auto) 28.1 % (20.0-40.0) 08/17/18 07:28 [place] % (Auto) 7.7 % (0.0-10.0) 08/17/18 07:28 Eos % (Auto) 1.9 % (0.0-4.0) 08/17/18 07:28 Baso % (Auto) 0.4 % (0.0-2.0) 08/17/18 07:28 Neut # (Auto) 6.1 K/uL (1.8-7.0) 08/17/18 07:28 Lymph # (Auto) 2.8 K/uL (1.0-4.3) 08/17/18 07:28 Bucks # (Auto) 0.8 K/uL (0.0-0.8) 08/17/18 07:28 Eos # (Auto) 0.2 K/uL (0.0-0.7) 08/17/18 07:28 Baso # (Auto) 0.0 K/uL (0.0-0.2) 08/17/18 07:28 ESR 12 mm/hr (0-15) 08/16/18 03:47 PT 11.5 SECONDS (9.7-12.2) 08/15/18 21:07 INR 1.1 08/15/18 21:07 APTT 31.3 SECONDS (21-34) 08/15/18 21:07 Sodium 137 mmol/L (132-148) 08/17/18 07:28 Potassium 3.8 mmol/L (3.6-5.2) 08/17/18 07:28 Chloride 103 mmol/L (98-107) 08/17/18 07:28 Carbon Dioxide 25 mmol/L (22-30) 08/17/18 07:28 Anion Gap 13 (10-20) 08/17/18 07:28 BUN 12 mg/dL (9-20) 08/17/18 07:28 Creatinine 0.9 mg/dL (0.8-1.5) 08/17/18 07:28 Est GFR ( Amer) > 60 08/17/18 07:28 Est GFR (Non-Af Amer) > 60 08/17/18 07:28 Random Glucose 119 mg/dL (75-110) H 08/17/18 07:28 Calcium 9.1 mg/dl (8.6-10.4) 08/17/18 07:28 Phosphorus 3.5 mg/dL (2.5-4.5) 08/17/18 07:28 Magnesium 2.0 mg/dL (1.6-2.3) 08/17/18 07:28 Total Bilirubin 0.7 mg/dL (0.2-1.3) 08/17/18 07:28 AST 28 U/L (17-59) 08/17/18 07:28 ALT 21 U/L (21-72) 08/17/18 07:28 Alkaline Phosphatase 77 U/L (38-126) 08/17/18 07:28 Total Creatine Kinase 46 U/L (55-170) L 08/16/18 12:05 CK-MB (Mass) 0.42 ng/mL (0.0-3.38) 08/16/18 12:05 Troponin I < 0.0120 ng/mL (0.00-0.120) 08/16/18 12:05 NT-Pro-B Natriuret Pep 87.3 pg/mL (0-900) 08/15/18 21:07 Total Protein 6.7 g/dL (6.3-8.3) 08/17/18 07:28 Albumin 4.0 g/dL (3.5-5.0) 08/17/18 07:28 Globulin 2.8 gm/dL (2.2-3.9) 08/17/18 07:28 Albumin/Globulin Ratio 1.4 (1.0-2.1) 08/17/18 07:28 Lipase 98 U/L (23-300) 08/15/18 22:19 Urine Color Straw (YELLOW) 08/16/18 06:16 Urine Clarity Clear (Clear) 08/16/18 06:16 Urine pH 8.0 (5.0-8.0) 08/16/18 06:16 Ur Specific [place] 1.043 (1.003-1.030) H 08/16/18 06:16 Urine Protein Negative mg/dL (NEGATIVE) 08/16/18 06:16 Urine Glucose (UA) Normal mg/dL (Normal) 08/16/18 06:16 Urine Ketones Negative mg/dL (NEGATIVE) 08/16/18 06:16 Urine Blood 1+ (NEGATIVE) H 08/16/18 06:16 Urine Nitrate Negative (NEGATIVE) 08/16/18 06:16 Urine Bilirubin Negative (NEGATIVE) 08/16/18 06:16 Urine Urobilinogen Normal mg/dL (0.2-1.0) 08/16/18 06:16 Ur Leukocyte Esterase Neg Eleazar/uL (Negative) 08/16/18 06:16 Urine RBC (Auto) 2 /hpf (0-3) 08/16/18 06:16 - Hospital Course Hospital Course: HPI at time of admission: "63 y o male with HTN and GERD who presented with abdominal pain. Patient stated that the pain began 2-4 days ago. It is located in the epigastric region and below his ribs on the left side. Patient said the pain is intermittent. It worsens with PO intake. He also endorsed decreased appetite and early satiety. He stated he had an unintentional 15 lb weight loss over 1 month. He has never had an EGD or colonoscopy. He had taken Mylanta which relieves symptoms temporarily but gives him diarrhea. He had also taken Tylenol without relief. He denied taking NSAIDs, including ASA, Motrin, Aleve. Denied nausea and vomiting. He complained of acid reflux." Hospital Course: Pertinent imaging: CT A/P: no significant/acute findings Upper GI series: Moderate gastroesophageal reflux to the level of the thoracic inlet. Thickening and irregularity of the gastric mucosa which may represent a gastritis. Relative narrowing at the midportion of the stomach. These findings may be better evaluated with upper GI endoscopy if clinically indicated. Relative hold-up of contract within the stomach with prominent delay of gastric emptying. This may represent a gastroparesis. This may be better evaluated with nuclear medicine study. Pt was admitted for management of acute abdominal pain. Upper GI series and CT A/P findings as noted above. Lipase and LFTs were wnl. Pt had leukocytosis on admission which resolved prior to d/c. GI (Dr. Arias) was consulted, who recommended upper GI series for symptoms. Pt's abdominal pain resolved on day of discharge and was able to tolerate diet without reflux symptoms. Dr. Arias recommended that pt f/u after d/c in his office for outpatient endoscopy. Pt also came in with c/o chest pain and also presented with HTN urgency. From discussion with pt, he was using BP medicines at home for management of HTN and was not taking them as prescribed. [place] neg x3. EKG demonstrated no acute findings. Cardiology (Dr. Poon) was consulted, who recommended titration of BP medications. BP significantly improved over course of admission, and was more adequately controlled on day of discharge. Echo demonstrated no acute abnormalities, normal EF. Pt was discharged to home in stable condition on 08/17/18. Was instructed to f/u within his PCP Dr. Mendez within 2-3 days of hospital discharge, and to f/u with Dr. Arias (GI) in office in 1 week for outpatient endoscopy. This is a summary of the hospital course. For further details, please refer to the hospital EMR. Discharge Exam - Head Exam Head Exam: ATRAUMATIC, NORMOCEPHALIC - Eye Exam Eye Exam: EOMI, Normal appearance, PERRL - ENT Exam ENT Exam: Mucous Membranes Moist - Respiratory Exam Respiratory Exam: Clear to PA & Lateral, NORMAL BREATHING PATTERN, UNREMARKABLE - Cardiovascular Exam Cardiovascular Exam: REGULAR RHYTHM, +S1, +S2 - GI/Abdominal Exam GI & Abdominal Exam: Normal Bowel Sounds, Soft, Unremarkable. absent: Organomegaly, Tenderness - Extremities Exam Extremities exam: full ROM, normal capillary refill, normal inspection, pedal pulses present - Neurological Exam Neurological exam: Alert, CN II-XII Intact, Normal Gait, Oriented x3, Reflexes Normal - Skin Skin Exam: Dry, Intact, Normal Color, Warm Discharge Plan - Discharge Medications Prescriptions: Amlodipine/Valsartan [Exforge 10-160 mg Tablet] 1 each PO DAILY #30 tablet RX: Pantoprazole [Protonix EC Tab] 40 mg PO DAILY #30 ect - Follow Up Plan Condition: IMPROVED Disposition: HOME/ ROUTINE Instructions: Gastritis, Amlodipine and Valsartan, Acid Reflux (Gastroesophageal Reflux Disease), Adult (DC), Chest Pain (DC), High Blood Pressure Emergencies, Pantoprazole Additional Instructions: Please follow-up with your primary care provider (Dr. Mendez) within 2-3 days of hospital discharge. Please follow-up with Dr. Arias (Gastroenterology) within 1 week of hospital discharge for possible endoscopy. You have been given new prescription for blood pressure medication. Please take as prescribed. Obtain refills from your primary care doctor. Should your symptoms worsen, please call your primary care physician or report to your nearest emergency department. Referrals: Shiraz Mendez MD [Staff Provider] - Bar Arias MD [Staff Provider] - <Jasmin Hargrove V - Last Filed: 08/17/18 23:31> Provider - Provider Date of Admission: 08/15/18 23:08 Attending physician: Jasmin Hargrove DO Consults: 08/16/18 00:17 Cardiology Consult Routine Comment: Consulting Provider: Ray Poon Consulting Physician: Ray Poon Reason for Consult: chest pain, HTN 08/16/18 00:18 Gastroenterology Consult Routine Comment: Consulting Provider: Bar Arias Consulting Physician: Bar Arias Reason for Consult: epigastric pain, early satiety, weight loss Hospital Course - Lab Results Lab Results: Micro Results 08/16/18 06:16 Urine,Clean Catch Urine Culture - Final No Growth (<1,000 CFU/ML) Most Recent Lab Values WBC 9.9 K/uL (4.8-10.8) 08/17/18 07:28 RBC 5.21 Mil/uL (4.40-5.90) 08/17/18 07:28 Hgb 15.8 g/dL (12.0-18.0) 08/17/18 07:28 Hct 45.4 % (35.0-51.0) 08/17/18 07:28 MCV 87.2 fL (80.0-94.0) 08/17/18 07:28 MCH 30.2 pg (27.0-31.0) 08/17/18 07:28 MCHC 34.7 g/dL (33.0-37.0) 08/17/18 07:28 RDW 13.7 % (11.5-14.5) 08/17/18 07:28 Plt Count 225 K/uL (130-400) 08/17/18 07:28 MPV 8.0 fL (7.2-11.7) 08/17/18 07:28 Neut % (Auto) 61.9 % (50.0-75.0) 08/17/18 07:28 Lymph % (Auto) 28.1 % (20.0-40.0) 08/17/18 07:28 [place] % (Auto) 7.7 % (0.0-10.0) 08/17/18 07:28 Eos % (Auto) 1.9 % (0.0-4.0) 08/17/18 07:28 Baso % (Auto) 0.4 % (0.0-2.0) 08/17/18 07:28 Neut # (Auto) 6.1 K/uL (1.8-7.0) 08/17/18 07:28 Lymph # (Auto) 2.8 K/uL (1.0-4.3) 08/17/18 07:28 [place] # (Auto) 0.8 K/uL (0.0-0.8) 08/17/18 07:28 Eos # (Auto) 0.2 K/uL (0.0-0.7) 08/17/18 07:28 Baso # (Auto) 0.0 K/uL (0.0-0.2) 08/17/18 07:28 ESR 12 mm/hr (0-15) 08/16/18 03:47 PT 11.5 SECONDS (9.7-12.2) 08/15/18 21:07 INR 1.1 08/15/18 21:07 APTT 31.3 SECONDS (21-34) 08/15/18 21:07 Sodium 137 mmol/L (132-148) 08/17/18 07:28 Potassium 3.8 mmol/L (3.6-5.2) 08/17/18 07:28 Chloride 103 mmol/L (98-107) 08/17/18 07:28 Carbon Dioxide 25 mmol/L (22-30) 08/17/18 07:28 Anion Gap 13 (10-20) 08/17/18 07:28 BUN 12 mg/dL (9-20) 08/17/18 07:28 Creatinine 0.9 mg/dL (0.8-1.5) 08/17/18 07:28 Est GFR ( Amer) > 60 08/17/18 07:28 Est GFR (Non-Af Amer) > 60 08/17/18 07:28 Random Glucose 119 mg/dL (75-110) H 08/17/18 07:28 Calcium 9.1 mg/dl (8.6-10.4) 08/17/18 07:28 Phosphorus 3.5 mg/dL (2.5-4.5) 08/17/18 07:28 Magnesium 2.0 mg/dL (1.6-2.3) 08/17/18 07:28 Total Bilirubin 0.7 mg/dL (0.2-1.3) 08/17/18 07:28 AST 28 U/L (17-59) 08/17/18 07:28 ALT 21 U/L (21-72) 08/17/18 07:28 Alkaline Phosphatase 77 U/L (38-126) 08/17/18 07:28 Total Creatine Kinase 46 U/L (55-170) L 08/16/18 12:05 CK-MB (Mass) 0.42 ng/mL (0.0-3.38) 08/16/18 12:05 Troponin I < 0.0120 ng/mL (0.00-0.120) 08/16/18 12:05 NT-Pro-B Natriuret Pep 87.3 pg/mL (0-900) 08/15/18 21:07 Total Protein 6.7 g/dL (6.3-8.3) 08/17/18 07:28 Albumin 4.0 g/dL (3.5-5.0) 08/17/18 07:28 Globulin 2.8 gm/dL (2.2-3.9) 08/17/18 07:28 Albumin/Globulin Ratio 1.4 (1.0-2.1) 08/17/18 07:28 Lipase 98 U/L (23-300) 08/15/18 22:19 Urine Color Straw (YELLOW) 08/16/18 06:16 Urine Clarity Clear (Clear) 08/16/18 06:16 Urine pH 8.0 (5.0-8.0) 08/16/18 06:16 Ur Specific [place] 1.043 (1.003-1.030) H 08/16/18 06:16 Urine Protein Negative mg/dL (NEGATIVE) 08/16/18 06:16 Urine Glucose (UA) Normal mg/dL (Normal) 08/16/18 06:16 Urine Ketones Negative mg/dL (NEGATIVE) 08/16/18 06:16 Urine Blood 1+ (NEGATIVE) H 08/16/18 06:16 Urine Nitrate Negative (NEGATIVE) 08/16/18 06:16 Urine Bilirubin Negative (NEGATIVE) 08/16/18 06:16 Urine Urobilinogen Normal mg/dL (0.2-1.0) 08/16/18 06:16 Ur Leukocyte Esterase Neg [place]/uL (Negative) 08/16/18 06:16 Urine RBC (Auto) 2 /hpf (0-3) 08/16/18 06:16 Attending/Attestation - Attestation I have personally seen and examined this patient.: Yes I have fully participated in the care of the patient.: Yes I have reviewed all pertinent clinical information, including history, physical exam and plan: Yes Notes (Text): Patient seen, examined case discussed with medical professionals. Tolerating diet no noted reflux satiety or anything bleeding. Upper GI series showed for moderate reflux gastritis and gastroparesis. The resident did speak with GI regards to GI series as well as how patient is doing today. Noted that GI recommends for endoscopy can be performed as outpatient. Blood pressure regimen was changed by cardiology on day prior and currently he is on maximum dose of Norvasc and added Cozaar we did give him a prescription for a combination pill of Exforge we did tell him to please do not take his Toprol his hydralazine for blood pressure check a follow-up at his PMDs office. Patient medically stable for discharge patient follow-up with GI outpatient endoscopy. Patient follow-up with PMD for repeat BP check while on the medication. Summary of patient's hospitalization please refer to EMR for full details record thank you
== END 2018-08-17 13:43 | disposition home or self-care (01) ==
LOC: C.ER 20:05 → C.9E 23:08 → C.5S 08-16 07:09
PROVIDERS: ADMIT Hospitalist; ATTEND Hospitalist
DX: R10.12 Left upper quadrant pain (principal); I10 Essential (primary) hypertension; I16.0 Hypertensive urgency; K21.9 Gastro-esophageal reflux disease without esophagitis; K31.84 Gastroparesis; F17.210 Nicotine dependence, cigarettes, uncomplicated; R07.9 Chest pain, unspecified; R68.81 Early satiety; R63.4 Abnormal weight loss; K29.60 Other gastritis without bleeding
CPT/HCPCS: 36415; 71045; 74177; 74241; 80053; 81001; 83690; 83735; 83880; 84100; 84484; 85025; 85610; 85651; 85730; 87040; 87086; 90732; 93306; 99285; G0009; G0378; Q9966